=== PATIENT | male | born 1980 | race Caucasian/White ===

== ENCOUNTER 2017-05-26 09:16 | Inpatient (IN) | payer SELFPAY ==
[~2017-05-26] VITALS: Ht 177.8 cm; Wt 114.5 kg
[~2017-05-26 09:16] MED LIST: BACI28.43 TP; CLON1TAB PO; METO25TA4 PO; TRAZ50TA15 PO
[2017-05-26] MEDS ORDERED: IV NORMAL SALINE 1000ML BAG 1,000 ML IV ONE (09:45)
--- NOTE | 2017-05-26 10:45 | PHYS DOC ---
Past Medical History Past Medical History: Anxiety, Hypertension, Schizophrenia, Other Additional Past Medical Histor: PTSD Past Surgical History: No Surgical History Additional Information: Still smokes,"Periodically." Alcohol Use: None Drug Use: None Adult General Chief Complaint Chief Complaint: WEAKNESS/GENERALIZED HPI HPI Patient is a 36 year old male with history of anxiety, hypertension, schizophrenia, who presents today complaining of generalized weakness and cramps throughout his body that began one week ago. Patient believes is having an adverse reactions to his psychiatric medicines which she has been taking for 6 months. He states "I am heavily medicated". Patient is on Quetiapine, Divalproex, Diazepam, Haloperidol, Atomoxetine, Gabapentin, Benztropine, Escitalopram, Atomoxetine. Patient states he believes he needs IV fluids. He states he can't move his legs. Review of Systems Review of Systems Constitutional: Denies fever or chills [] Eyes: Denies change in visual acuity, redness, or eye pain [] HENT: Denies nasal congestion or sore throat [] Respiratory: Denies cough or shortness of breath [] Cardiovascular: No additional information not addressed in HPI [] GI: Denies abdominal pain, nausea, vomiting, bloody stools or diarrhea [] : Denies dysuria or hematuria [] Musculoskeletal: Generalized weakness, muscle cramps. Integument: Denies rash or skin lesions [] Neurologic: Denies headache, focal weakness or sensory changes [] Current Medications Current Medications Current Medications Medications (Trade) Dose Ordered Sig/Cristian Start Time Stop Time Status Last Admin Dose Admin Lorazepam (Ativan) 1 mg PRN Q4HRS PRN 05/26/17 12:30 05/26/17 12:52 1 MG Potassium Chloride 100 ml @ 100 mls/hr Q1H 05/26/17 11:30 05/26/17 13:29 05/26/17 12:33 100 MLS/HR Potassium Chloride (KCl Oral Soln) 40 meq 1X ONCE 05/26/17 11:30 05/26/17 11:31 DC 05/26/17 11:35 40 MEQ Sodium Chloride 1,000 ml @ 1,000 mls/hr 1X ONCE 05/26/17 09:45 05/26/17 10:44 DC 05/26/17 10:39 1,000 MLS/HR Allergies Allergies Allergies Coded Allergies Type Severity Reaction Last Updated Verified No Known Drug Allergies 01/16/15 No Physical Exam Physical Exam Constitutional: Well developed, well nourished, no acute distress, non-toxic appearance. [] HENT: Normocephalic, atraumatic, bilateral external ears normal, oropharynx moist, no oral exudates, nose normal. [] Eyes: PERRLA, EOMI, conjunctiva normal, no discharge. [] Neck: Normal range of motion, no tenderness, supple, no stridor. [] Cardiovascular:Heart rate regular rhythm, no murmur [] Lungs & Thorax: Bilateral breath sounds clear to auscultation [] Abdomen: Bowel sounds normal, soft, no tenderness, no masses, no pulsatile masses. [] Skin: Warm, dry, no erythema, no rash. [] Back: No tenderness, no CVA tenderness. [] Extremities: No tenderness, no cyanosis, no clubbing, ROM intact, no edema. [] Neurologic: Alert and oriented X 3, normal motor function, normal sensory function, no focal deficits noted. Cranial nerves II through XII intact Psychologic: Affect normal, judgement normal, mood normal. [] Current Patient Data Vital Signs Vital Signs Date Time Temp Pulse Resp B/P (MAP) Pulse Ox O2 Delivery O2 Flow Rate FiO2 05/26/17 11:30 92 14 100 05/26/17 09:25 98.9 170/95 (120) Room Air 98.9 Lab Values Laboratory Tests Test 05/26/17 10:30 05/26/17 11:09 White Blood Count 4.1 x10^3/uL (4.0-11.0) Red Blood Count 4.71 x10^6/uL (4.30-5.70) Hemoglobin 14.3 g/dL (13.0-17.5) Hematocrit 41.9 % (39.0-53.0) Mean Corpuscular Volume 89 fL (79-100) Mean Corpuscular Hemoglobin 31 pg (25-35) Mean Corpuscular Hemoglobin Concent 34 g/dL (31-37) Red Cell Distribution Width 14.4 % (11.5-14.5) Platelet Count 161 x10^3/uL (140-400) Neutrophils (%) (Auto) 59 % (31-73) Lymphocytes (%) (Auto) 30 % (24-48) Monocytes (%) (Auto) 7 % (0-9) Eosinophils (%) (Auto) 5 % (0-3) H Basophils (%) (Auto) 1 % (0-3) Neutrophils # (Auto) 2.4 x10^3uL (1.8-7.7) Lymphocytes # (Auto) 1.2 x10^3/uL (1.0-4.8) Monocytes # (Auto) 0.3 x10^3/uL (0.0-1.1) Eosinophils # (Auto) 0.2 x10^3/uL (0.0-0.7) Basophils # (Auto) 0.0 x10^3/uL (0.0-0.2) Sodium Level 143 mmol/L (136-145) Potassium Level 2.1 mmol/L (3.5-5.1) *L Chloride Level 107 mmol/L (98-107) Carbon Dioxide Level 27 mmol/L (21-32) Anion Gap 9 (6-14) Blood Urea Nitrogen 6 mg/dL (8-26) L Creatinine 1.1 mg/dL (0.7-1.3) Estimated GFR (Cockcroft-Gault) 75.7 BUN/Creatinine Ratio 5 (6-20) L Glucose Level 80 mg/dL (70-99) Calcium Level 8.7 mg/dL (8.5-10.1) Magnesium Level 1.8 mg/dL (1.8-2.4) Total Bilirubin 0.1 mg/dL (0.2-1.0) L Aspartate Amino Transferase (AST) 32 U/L (15-37) Alanine Aminotransferase (ALT) 24 U/L (16-63) Alkaline Phosphatase 60 U/L (46-116) Myoglobin 285 ng/mL (16-96) H C-Reactive Protein, Quantitative 3.7 mg/L (0-3.3) H Total Protein 6.8 g/dL (6.4-8.2) Albumin 3.5 g/dL (3.4-5.0) Albumin/Globulin Ratio 1.1 (1.0-1.7) Lipase 160 U/L (73-393) Ethyl Alcohol Level < 10 mg/dL (0-10) Urine Collection Type Unknown Urine Color Yellow Urine Clarity Clear Urine pH 6.5 Urine Specific [place] <=1.005 Urine Protein Negative mg/dL (NEG-TRACE) Urine Glucose (UA) Negative mg/dL (NEG) Urine Ketones (Stick) Negative mg/dL (NEG) Urine Blood Negative (NEG) Urine Nitrite Negative (NEG) Urine Bilirubin Negative (NEG) Urine Urobilinogen Dipstick 0.2 mg/dL (0.2 mg/dL) Urine Leukocyte Esterase Negative (NEG) Urine RBC 0 /HPF (0-2) Urine WBC Occ /HPF (0-4) Urine Bacteria 0 /HPF (0-FEW) Urine Opiates Screen Neg (NEG) Urine Methadone Screen Neg (NEG) Urine Barbiturates Neg (NEG) Urine Phencyclidine Screen Neg (NEG) Urine Amphetamine/Methamphetamine Neg (NEG) Urine Benzodiazepines Screen Pos (NEG) Urine Cocaine Screen Neg (NEG) Urine Cannabinoids Screen Neg (NEG) Urine Ethyl Alcohol Neg (NEG) Laboratory Tests 05/26/17 10:30 Laboratory Tests 05/26/17 10:30 EKG EKG 11:[address] Ospina sinus tachycardia heart rate 102 no STEMI[] Radiology/Procedures Radiology/Procedures [] Course & Med Decision Making Course & Med Decision Making Pertinent Labs and Imaging studies reviewed. (See chart for details) This is a 36-year-old male patient presenting to the ED today with generalized weakness, and muscle cramps throughout his body that began a week ago. Patient believes is having adverse reaction to one of his psychiatric medicines. He takes Quetiapine, Divalproex, Diazepam, Haloperidol, Atomoxetine, Gabapentin, Benztropine, Escitalopram, Atomoxetine. CBC no acute findings, CMP with potassium of 2.1, myoglobin 285, CRP 3.7. Patient was given oral potassium as well as IV potassium was started. EKG was done. Vitals on arrival to the ED temperature 98.9, heart rate 116, respirations 19 on room air, blood pressure 170/95, O2 sats 97% on room air. Spoke with Dr. Laureano who accepted patient for admission. Dragon Disclaimer Dragon Disclaimer This electronic medical record was generated, in whole or in part, using a voice recognition dictation system. Departure Departure Impression: Primary Impression: Hypokalemia Additional Impression: Hypertension Disposition: 09 ADMITTED INPATIENT Condition: STABLE Referrals: NO PCP (PCP) Problem Qualifiers Additional Impression: Hypertension Hypertension type: unspecified Qualified Codes: I10 - Essential (primary) hypertension RIC KAISER APRN May 26, 2017 10:45
[2017-05-26 10:48] LABS: BASO % 1 % (0-3); EOS % 5 % (0-3); HEMATOCRIT 41.9 % (39.0-53.0); HEMOGLOBIN 14.3 g/dL (13.0-17.5); LYMPH # 1.2 x10^3/uL (1.0-4.8); LYMPH % 30 % (24-48); MEAN CORPUSCULAR HEMOGLOBIN 31 pg (25-35); MEAN CORPUSCULAR HGB CONC 34 g/dL (31-37); MEAN CORPUSCULAR VOLUME 89 fL (79-100); MONO % 7 % (0-9); NEUT % 59 % (31-73); PLATELET COUNT 161 x10^3/uL (140-400); RED BLOOD COUNT 4.71 x10^6/uL (4.30-5.70); RED CELL DISTRIBUTION WIDTH 14.4 % (11.5-14.5); WHITE BLOOD COUNT 4.1 x10^3/uL (4.0-11.0)
[2017-05-26 11:07] LABS: ALBUMIN 3.5 g/dL (3.4-5.0); ALBUMIN/GLOBULIN RATIO 1.1 (1.0-1.7); C-REACTIVE PROTEIN 3.7 mg/L (0-3.3); CALCIUM 8.7 mg/dL (8.5-10.1); CREATININE 1.1 mg/dL (0.7-1.3); GFR 75.7; MAGNESIUM 1.8 mg/dL (1.8-2.4); TOTAL BILIRUBIN 0.1 mg/dL (0.2-1.0); TOTAL PROTEIN 6.8 g/dL (6.4-8.2)
[2017-05-26 11:09] LABS: POTASSIUM 2.1 mmol/L (3.5-5.1)
[2017-05-26 11:24] LABS: BILIRUBIN,URINE NEGATIVE (NEG); GLUCOSE,URINE NEGATIVE (NEG); NITRITE,URINE NEGATIVE (NEG); PH,URINE 6.5; PROTEIN,URINE NEGATIVE (NEG-TRACE); UROBILINOGEN,URINE 0.2 mg/dL (0.2 mg/dL)
[2017-05-26] MEDS ORDERED: POTASSIUM CHLORIDE 20 MEQ/15 ML ORAL LIQUID. PO ONE (11:30)
[2017-05-26 11:32] LABS: BACTERIA,URINE 0 /HPF (0-FEW); RBC,URINE 0 /HPF (0-2); WBC,URINE OCC /HPF (0-4)
[2017-05-26] MEDS: POTASSIUM CHLORIDE 10MEQ 100 ML IV SCH ×6 (11:35→23:04)
[2017-05-26 12:26] LABS: BARBITURATES NEG (NEG); BENZODIAZEPINES POS (NEG); CANNABINOIDS NEG (NEG); COCAINE NEG (NEG); METHADONE NEG (NEG); OPIATES NEG (NEG); PHENCYCLIDINE NEG (NEG)
[2017-05-26] MEDS ORDERED: ESCITALOPRAM OX20 MG PO (12:59)
[2017-05-26] MEDS ORDERED: VALIUM10 MG PO (12:59)
[2017-05-26] MEDS ORDERED: ATOM40CA PO (13:01)
[2017-05-26] MEDS ORDERED: GABA-586 PO (13:02)
[2017-05-26] MEDS ORDERED: QUET300T5 PO (13:02)
[2017-05-26] MEDS ORDERED: HALO10TA PO (13:03)
[2017-05-26] MEDS ORDERED: DIVA250T PO (13:07)
[2017-05-26] MEDS ORDERED: OXYC-328 PO (13:10)
[2017-05-26] MEDS ORDERED: TRAZ50TA15 PO (13:11)
[2017-05-26] MEDS ORDERED: IBUP-1027 PO (13:12)
[2017-05-26] MEDS ORDERED: BENZ1TAB5 PO (13:17)
[2017-05-26] MEDS ORDERED: DIVA500T4 PO (13:17)
[2017-05-26] MEDS ORDERED: ACETAMINOPHEN 325 MG TABLET. PO PRN (13:30)
[2017-05-26] MEDS ORDERED: ONDANSETRON PF 4 MG/2 ML VIAL. IV PRN (13:30)
--- NOTE | 2017-05-26 14:54 | EKG ---
[facility] [address] [place] [address] Test Date: 2017-05-26 Test Time: 11:52:09 Pat Name: HENRRY CHAPIN Department: Room: ED HOLD 18 Gender: M [employer]st: : [id number] Requested By: RIC KAISER Order Number: [id number] Reading MD: Pricila Wolff Measurements Intervals [place] Rate: 102 P: 36 [place]: 158 QRS: 26 QRSD: 86 T: 11 QT: 300 QTc: 395 Interpretive Statements SINUS TACHYCARDIA OTHERWISE NORMAL EKG Electronically Signed On 05-26-2017 20:10:49 CDT by Pricila Wolff
[2017-05-26 16:00] VITALS: BP 147/93
[2017-05-26 19:05] LABS: MAGNESIUM 1.8 mg/dL (1.8-2.4)
[2017-05-26 19:19] LABS: POTASSIUM 1.9 mmol/L (3.5-5.1)
[2017-05-26] MEDS: POTASSIUM CHLORIDE 20 MEQ TABLET.ER. PO SCH ×2 (19:37→23:32)
[2017-05-26 19:50] VITALS: BP 157/92
[2017-05-26] MEDS ORDERED: POTASSIUM CHLORIDE 10MEQ 100 ML IV SCH (20:00)
[2017-05-26] MEDS ORDERED: HALOPERIDOL 5 MG TABLET. PO SCH (20:15)
--- NOTE | 2017-05-26 20:35 | HP ---
ADMIT DATE: 05/26/2017 CHIEF COMPLAINT: Severe hypokalemia. HISTORY OF PRESENT ILLNESS: The patient is a 36-year-old gentleman with schizoaffective disorder who presented to the Emergency Room with a 1-week history of worsening cramps and weakness all over. He denies any other symptoms, although on further questioning admits that last week, he had a watery diarrhea multiple times. Symptoms now have resolved. He denies any other symptoms, chest pain or shortness of breath. In the Emergency Room, he was found with a potassium of 2.1 and immediately admitted for repletion. Of note, his EKG was actually within normal limits. PAST MEDICAL HISTORY: Schizoaffective disorder. FAMILY HISTORY: Positive for cancer, mother apparently has both ovarian as well as breast cancer and thyroid cancer. SOCIAL HISTORY: Lives with his mother, smokes "occasionally." Denies any alcohol or drug use. ALLERGIES: No known drug allergies. MEDICATIONS: MAR reconciled with home medications. REVIEW OF SYSTEMS: Positive as per HPI. Denies any other symptoms in rest of organ system review. PHYSICAL EXAMINATION: VITAL SIGNS: Currently show a blood pressure of 147/93, heart rate of 107, respiratory rate at 22. He is afebrile. GENERAL: This is a morbidly obese 36-year-old gentleman, alert and oriented, in no acute distress. HEENT: Shows no scleral icterus. NECK: Supple. LUNGS: Clear. HEART: Slightly tachycardic. ABDOMEN: Obese, positive bowel sounds. Organs could not be palpated. EXTREMITIES: Show no edema. He has a significant muscle weakness in his extremities x 4. LABORATORY DATA: CBC with a WBC of 4.1, hemoglobin 14.3, platelets of 161. Chemistries with a BUN and creatinine of 6 and 1.1. Electrolytes with a potassium of 2.1, mag at 1.8. Other electrolytes within normal limits. Myoglobin at 285. C-reactive protein 3.7. Tox screen positive for benzodiazepines as his prescriptions. Urine is negative. ASSESSMENT AND PLAN: The patient is a 36-year-old gentleman who presented with muscle weakness and spasms and was found with severe hypokalemia, isolated. He will be repleted CASSIE both IV and p.o., we will monitor his labs closely. Urine electrolytes will be obtained as well. In trying to determine the etiology, he was questioned about his fluid intake. He apparently drinks copious amounts of soda and "washes them down" with water. However, I would expect all electrolytes to be depressed rather than isolated potassium should that be the cause. Looking at his medication, Seroquel indeed can cause hypokalemia as well as hypomagnesemia. However, he has been on this medication for at least 6 months and is just now developing symptoms. We will keep him on a medication for now. Would like to get psych input, unfortunately not available here. We will reevaluate electrolytes in the morning. Consider holding a single dose of Seroquel at night. DIANE CORONA MD DR: SHELLI/nts JOB#: [id number] / [id number] SAURAV
[2017-05-26] MEDS: BENZTROPINE MESYLATE 1 MG TABLET. PO SCH (20:49)
[2017-05-26] MEDS: clonazePAM 1 MG TABLET PO SCH (20:50)
[2017-05-26] MEDS: diazePAM 5 MG TABLET PO SCH (20:50)
[2017-05-26] MEDS: DIVALPROEX EXTENDED RELEASE 500 MG TAB.ER.24H. PO SCH (20:51)
[2017-05-26] MEDS: GABAPENTIN 300 MG CAPSULE. PO SCH (20:51)
[2017-05-26] MEDS: HALOPERIDOL 5 MG TABLET. PO SCH (20:51)
[2017-05-26] MEDS ORDERED: traZODone 50 MG TABLET. PO SCH (21:00)
[2017-05-26] MEDS ORDERED: QUEtiapine 300 MG TAB.ER.24H. PO SCH (21:00)
[2017-05-26] MEDS ORDERED: MORPHINE SULFATE 2 MG/ML DISP.SYRIN. IV PRN (22:45)
[2017-05-26] MEDS ORDERED: traMADol 50 MG TABLET PO PRN ×2 (22:45)
[2017-05-26 23:45] VITALS: BP 126/75
[2017-05-27] MEDS ORDERED: MAGNESIUM SULFATE 2GM 50 ML IV ONE (02:00)
[2017-05-27 03:35] VITALS: BP 125/75
[2017-05-27] MEDS: POTASSIUM CHLORIDE 20 MEQ TABLET.ER. PO SCH ×2 (03:47→08:02)
[2017-05-27 05:30] LABS: CREATININE 0.9 mg/dL (0.7-1.3); GFR 95.5; MAGNESIUM 2.1 mg/dL (1.8-2.4); POTASSIUM 3.7 mmol/L (3.5-5.1)
[2017-05-27 07:00] VITALS: BP 117/61
[2017-05-27 07:42] LABS: BASO % 0 % (0-3); EOS % 3 % (0-3); HEMATOCRIT 42.1 % (39.0-53.0); HEMOGLOBIN 14.6 g/dL (13.0-17.5); LYMPH # 1.5 x10^3/uL (1.0-4.8); LYMPH % 24 % (24-48); MEAN CORPUSCULAR HEMOGLOBIN 31 pg (25-35); MEAN CORPUSCULAR HGB CONC 35 g/dL (31-37); MEAN CORPUSCULAR VOLUME 89 fL (79-100); MONO % 7 % (0-9); NEUT % 65 % (31-73); PLATELET COUNT 184 x10^3/uL (140-400); RED BLOOD COUNT 4.73 x10^6/uL (4.30-5.70); RED CELL DISTRIBUTION WIDTH 14.7 % (11.5-14.5); WHITE BLOOD COUNT 6.4 x10^3/uL (4.0-11.0)
[2017-05-27] MEDS ORDERED: NON FORMULARY ITEM (Atomoxetine Hcl (Strattera) 1 CAP) PO SCH (08:00)
[2017-05-27] MEDS: BENZTROPINE MESYLATE 1 MG TABLET. PO SCH (08:25)
[2017-05-27] MEDS: diazePAM 5 MG TABLET PO SCH ×2 (08:26→13:00)
[2017-05-27] MEDS: HALOPERIDOL 5 MG TABLET. PO SCH (08:26)
[2017-05-27] MEDS: clonazePAM 1 MG TABLET PO SCH ×2 (08:26→14:03)
[2017-05-27] MEDS: DIVALPROEX EXTENDED RELEASE 500 MG TAB.ER.24H. PO SCH ×2 (09:00→14:00)
[2017-05-27] MEDS ORDERED: CITALOPRAM 20 MG TABLET. PO SCH (09:00)
[2017-05-27] MEDS: GABAPENTIN 300 MG CAPSULE. PO SCH ×2 (09:00→13:09)
[2017-05-27 11:00] VITALS: BP 165/79
[2017-05-27] MEDS ORDERED: DIAZEPAM10 MG PO (13:52)
[2017-05-27] MEDS ORDERED: CITA10TA4 PO (13:53)
--- NOTE | 2017-05-27 14:40 | PDOC3 ---
Discharge Summary [facility] Date of Admission: May 26, 2017 Discharge Date: May 27, 2017 Admitting Diagnosis generalized weakness leg cramps hypokalemia hypomagnesemia schizophrenia affective disorder plan: Problems: Final Diagnosis Brief Hospital Course Mr. Lucio is a 36 old M with schizophrenia affective disorder on multiple psych meds, some of them held by himself, came to ER for weakness and leg cramps. K was found 2.1, which is repleted overnight. pt said has some diarrhea 2 weeks, but not recently. admitted low po intake. pt ran out of unit to smoke, said he didnot know he could not do it. he feels ok now. dc home. asked him to fu with pcp, may need renal if cont hypokalemia. dc time 35min GENERAL: This is a morbidly obese 36-year-old gentleman, alert and oriented, in no acute distress. HEENT: Shows no scleral icterus. NECK: Supple. LUNGS: Clear. HEART: Slightly tachycardic. ABDOMEN: Obese, positive bowel sounds. Organs could not be palpated. EXTREMITIES: Show no edema. He has a significant muscle weakness in his extremities x 4. Patient History: Problems: Disposition home CONDITION AT DISCHARGE: Improved Diet regular Scheduled Atomoxetine Hcl (Strattera), 1 CAP PO DAILYWBKFT, (Reported) Benztropine Mesylate (Benztropine Mesylate), 1 TAB PO BID, (Reported) Citalopram Hydrobromide (Citalopram Hbr), 1 TAB PO DAILY, (Reported) Diazepam (Diazepam), 10 MG PO BID, (Reported) Divalproex Sodium (Depakote Er), 1 TAB PO TID, (Reported) Gabapentin (Gabapentin), 300 MG PO TID, (Reported) Haloperidol (Haloperidol), 1 TAB PO BID, (Reported) Oxycodone/Apap 10-325 (Percocet 10-325 Mg Tablet), 1 TAB PO Q4-6HRS, (Reported) Quetiapine Fumarate (Seroquel), 1 TAB PO QHS, (Reported) Trazodone Hcl (Trazodone Hcl), 1.5 TAB PO QHS, (Reported) Discontinued Medications Bacitracin (Bacitracin), 30 GM TP PRN BID PRN for RASH Discontinued Reason: Not taking Divalproex Sodium (Depakote Er), 1 TAB PO TID, (Reported) Discontinued Reason: Prescription changed Ibuprofen (Ibuprofen), 5 TAB PO PRN PRN for INFLAMMATION, (Reported) Metoprolol Tartrate (Metoprolol Tartrate), 1 TAB PO BID Discontinued Reason: Not taking Trazodone Hcl (Trazodone Hcl), 1 TAB PO QHS Discontinued Reason: Not taking Follow Up pcp in2 weeks LONG RANDHAWA MD May 27, 2017 14:39
[2017-05-27 18:17] LABS: SODIUM, URINE <60 mmol/L (Not Estab.)
== END 2017-05-27 14:10 | disposition home or self-care (01) | DRG 641 ==
LOC: ER 09:16 → ED HOLD 12:30 → 2 SOUTH 15:39
PROVIDERS: ADMIT Internal Medicine Hematology & Oncology; ATTEND Internal Medicine Hematology & Oncology
DX: E87.6 Hypokalemia (principal); E83.42 Hypomagnesemia; I10 Essential (primary) hypertension; E66.01 Morbid (severe) obesity due to excess calories; F25.9 Schizoaffective disorder, unspecified; Z68.36 Body mass index [BMI] 36.0-36.9, adult; F39 Unspecified mood [affective] disorder; F43.10 Post-traumatic stress disorder, unspecified; Z80.3 Family history of malignant neoplasm of breast; Z80.8 Family history of malignant neoplasm of other organs or systems; Z87.891 Personal history of nicotine dependence; F41.9 Anxiety disorder, unspecified
CPT/HCPCS: 36415; 80048; 80053; 80307; 81001; 82436; 83690; 83735; 83874; 84132; 84133; 84300; 85025; 86140; 93005; 96361; 96365; 96366; 96375; G0480; J2060; J3480; J7030; J7060; 99285-25; G0479

== ENCOUNTER 2017-11-05 17:42 | Emergency (ER) | payer SELFPAY ==
[2017-11-05 18:23] LABS: ADD MAN DIFF? NO
[2017-11-05 18:25] LABS: BASO # 0.1 x10^3/uL (0.0-0.2); BASO % 1 % (0-3); EOS # 0.1 x10^3/uL (0.0-0.7); EOS % 1 % (0-3); HEMATOCRIT 41.1 % (39.0-53.0); HEMOGLOBIN 14.2 g/dL (13.0-17.5); LYMPH % 10 % (24-48); MEAN CORPUSCULAR HEMOGLOBIN 32 pg (25-35); MEAN CORPUSCULAR HGB CONC 35 g/dL (31-37); MEAN CORPUSCULAR VOLUME 94 fL (79-100); MONO # 1.3 x10^3/uL (0.0-1.1); MONO % 12 % (0-9); NEUT # 8.5 x10^3uL (1.8-7.7); NEUT % 78 % (31-73); PLATELET COUNT 136 x10^3/uL (140-400); RED BLOOD COUNT 4.38 x10^6/uL (4.30-5.70); RED CELL DISTRIBUTION WIDTH 14.7 % (11.5-14.5); WHITE BLOOD COUNT 10.9 x10^3/uL (4.0-11.0)
[2017-11-05] MEDS: ONDANSETRON PF 4 MG/2 ML VIAL. IV (18:26)
[2017-11-05] MEDS: DEXAMETHASONE SOD PHOS 20 MG/5 ML VIAL. IV (18:27)
[2017-11-05] MEDS: diphenhydrAMINE 50 MG/ML VIAL IV (18:27)
[2017-11-05] MEDS: FAMOTIDINE 20 MG/2 ML VIAL IVP (18:27)
[2017-11-05] MEDS: IV NORMAL SALINE 1000ML BAG 1,000 ML IV (18:28)
[2017-11-05 18:37] LABS: ANION GAP 10 (6-14); BLOOD UREA NITROGEN 15 mg/dL (8-26); CALCIUM 8.7 mg/dL (8.5-10.1); CARBON DIOXIDE 29 mmol/L (21-32); CHLORIDE 104 mmol/L (98-107); CREATININE 1.3 mg/dL (0.7-1.3); GFR 62.1; GLUCOSE 105 mg/dL (70-99); MAGNESIUM 1.8 mg/dL (1.8-2.4); POTASSIUM 4.1 mmol/L (3.5-5.1); SODIUM 143 mmol/L (136-145)
== END 2017-11-05 20:10 | disposition home or self-care (01) ==
LOC: ER 17:42
DX: T78.40XA Allergy, unspecified, initial encounter (principal); F41.9 Anxiety disorder, unspecified; I10 Essential (primary) hypertension; F20.9 Schizophrenia, unspecified; F43.10 Post-traumatic stress disorder, unspecified; Z79.899 Other long term (current) drug therapy; X58.XXXA Exposure to other specified factors, initial encounter
CPT/HCPCS: 36415; 80048; 83735; 85025; 96361; 96374; 96375; 99284-25; J1100; J1200; J2060; J2405; J7030; S0028

== ENCOUNTER 2018-07-04 16:25 | Emergency (ER) | payer SELFPAY ==
[~2018-07-04] VITALS: Ht 177.8 cm; Wt 117.9 kg
[~2018-07-04 16:25] MED LIST changes: +ATEN50TA PO; +ATOM40CA PO; +BENZ1TAB5 PO; +CARI6CAP PO; +CITA10TA4 PO; +CLON1TAB11 PO; +DIAZEPAM10 MG PO; +DIVA250T PO; +DIVA500T4 PO; +ESCITALOPRAM OX10 MG PO; +ESCITALOPRAM OX20 MG PO; +GABA-586 PO; +HALO10TA PO; +IBUP-1027 PO; +METH4TAB2 PO; +OXYC-328 PO; +QUET300T5 PO; +TRAZ-85 PO; -TRAZ50TA15 PO; +VALIUM10 MG PO
[2018-07-04 16:30] VITALS: BP 158/108
[2018-07-04 17:39] LABS: BARBITURATES NEG (NEG); BENZODIAZEPINES NEG (NEG); CANNABINOIDS NEG (NEG); COCAINE NEG (NEG); METHADONE NEG (NEG); OPIATES NEG (NEG); PHENCYCLIDINE NEG (NEG)
[2018-07-04 17:40] LABS: AMPHETAMINE/METHAMPHETAMINE POS (NEG)
--- NOTE | 2018-07-04 17:46 | PHYS DOC ---
Past Medical History Past Medical History: Anxiety, Hypertension, Seizure, Schizophrenia, Other Additional Past Medical Histor: PTSD,SCHIZO-EFFECTIVE,LOW TESTERONE,MENTALLY CHALLENGED,DELUSIONAL THINKING Past Surgical History: No Surgical History Alcohol Use: None Drug Use: None Adult General Chief Complaint Chief Complaint: CHEMICAL EXPOSURE [facility] HPI Patient is a 37 year old male with a history of anxiety, hypertension, schizophrenia, who presents to the ED today complaining of radiation exposure. Patient has a long extensive story. The story goes like this. 3 weeks ago he was in [place] as. He states this strange person who works for [employer] went to his house in [place] when he was in [place]. He states this pulsatile mass for the DELIA his name is Neil. He states crease sprinkled radiation material all over his house in [place] including [place] 265, Thallium 235, and Veridium 260, he also injected the same material in him. Inquired from patient how did this person do both of these events in different cities at the same time. He states "never mind I was not in [place]". Inquired from patient if he reported this mother to police. He states he did not report to police he reported to [facility] version of [facility]. Inquired from patient what bit they do. He states they did nothing because this people private employees and they cannot be revealed in public. Patient continues to state we need to draw his blood to check for poisoning. At this point informed patient I am concerned about his psychological state as as well as concerned about the information of someone having radiation material. Informed patient I'm going to call the police department report as well as, poison control. Patient stood up and stated that he is leaving, he states he does not want the police involved in any way. Asked him why he does not want the police involved. He states he does not want this reported to anyone. He stood up and walked away. Review of Systems Review of Systems Constitutional: Denies fever or chills [] Eyes: Denies change in visual acuity, redness, or eye pain [] HENT: Denies nasal congestion or sore throat [] Respiratory: Denies cough or shortness of breath [] Cardiovascular: No additional information not addressed in HPI [] GI: Denies abdominal pain, nausea, vomiting, bloody stools or diarrhea [] : Denies dysuria or hematuria [] Musculoskeletal: Denies back pain or joint pain [] Integument: Denies rash or skin lesions [] Neurologic: Denies headache, focal weakness or sensory changes [] Psych: concern for radiation exposure All other systems were reviewed and found to be within normal limits, except as documented in this note. Allergies Allergies Allergies Coded Allergies Type Severity Reaction Last Updated Verified No Known Drug Allergies 01/16/15 No Physical Exam Physical Exam Constitutional: Well developed, well nourished, no acute distress, non-toxic appearance. [] HENT: Normocephalic, atraumatic, bilateral external ears normal, oropharynx moist, no oral exudates, nose normal. [] Eyes: PERRLA, EOMI, conjunctiva normal, no discharge. [] Neck: Normal range of motion, no tenderness, supple, no stridor. [] Cardiovascular:Heart rate regular rhythm, no murmur [] Lungs & Thorax: Bilateral breath sounds clear to auscultation [] Abdomen: Bowel sounds normal, soft, no tenderness, no masses, no pulsatile masses. [] Skin: Warm, dry, no erythema, no rash. [] Back: No tenderness, no CVA tenderness. [] Extremities: No tenderness, no cyanosis, no clubbing, ROM intact, no edema. [] Neurologic: Alert and oriented X 3, normal motor function, normal sensory function, no focal deficits noted. [] Psychologic: Appears depressed. EKG EKG [] Radiology/Procedures Radiology/Procedures [] Course & Med Decision Making Course & Med Decision Making Pertinent Labs and Imaging studies reviewed. (See chart for details) [] Dragon Disclaimer Dragon Disclaimer This electronic medical record was generated, in whole or in part, using a voice recognition dictation system. Departure Departure Impression: Primary Impression: Depression Additional Impression: Psychosis Disposition: 07 AGAINST MEDICAL ADVICE Condition: STABLE Referrals: NO PCP (PCP) Problem Qualifiers Primary Impression: Depression Depression Type: unspecified Qualified Codes: F32.9 - Major depressive disorder, single episode, unspecified Additional Impression: Psychosis Psychosis type: unspecified psychosis type Qualified Codes: F29 - Unspecified psychosis not due to a substance or known physiological condition RIC KAISER APRN Jul 04, 2018 17:46
== END 2018-07-04 17:14 | disposition left against medical advice (07) ==
LOC: ER 16:25
DX: F32.3 Major depressive disorder, single episode, severe with psychotic features (principal); Z77.123 Contact with and (suspected) exposure to radon and other naturally occurring radiation; F41.9 Anxiety disorder, unspecified; I10 Essential (primary) hypertension
CPT/HCPCS: 80307; 99283

== ENCOUNTER 2018-07-04 22:01 | Emergency (ER) | payer SELFPAY ==
[~2018-07-04] VITALS: Ht 177.8 cm; Wt 120.2 kg
[2018-07-04 22:10] VITALS: BP 157/93
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
[2018-07-04 22:51] LABS: BASO # 0.1 x10^3/uL (0.0-0.2); BASO % 2 % (0-3); EOS # 0.4 x10^3/uL (0.0-0.7); EOS % 5 % (0-3); HEMATOCRIT 43.8 % (39.0-53.0); HEMOGLOBIN 15.5 g/dL (13.0-17.5); LYMPH # 2.2 x10^3/uL (1.0-4.8); LYMPH % 30 % (24-48); MEAN CORPUSCULAR HEMOGLOBIN 31 pg (25-35); MEAN CORPUSCULAR HGB CONC 35 g/dL (31-37); MEAN CORPUSCULAR VOLUME 87 fL (79-100); MONO # 0.4 x10^3/uL (0.0-1.1); MONO % 6 % (0-9); NEUT # 4.1 x10^3uL (1.8-7.7); NEUT % 57 % (31-73); PLATELET COUNT 205 x10^3/uL (140-400); RED BLOOD COUNT 5.04 x10^6/uL (4.30-5.70); RED CELL DISTRIBUTION WIDTH 13.3 % (11.5-14.5); WHITE BLOOD COUNT 7.3 x10^3/uL (4.0-11.0)
[2018-07-04 22:54] LABS: BILIRUBIN,URINE NEGATIVE (NEG); CLARITY,URINE CLEAR; NITRITE,URINE NEGATIVE (NEG); PROTEIN,URINE NEGATIVE (NEG-TRACE); UROBILINOGEN,URINE 0.2 mg/dL (0.2 mg/dL)
[2018-07-04 23:00] LABS: CALCIUM 8.9 mg/dL (8.5-10.1); CREATININE 1.2 mg/dL (0.7-1.3); GFR 68.1; POTASSIUM 3.4 mmol/L (3.5-5.1)
[2018-07-04 23:01] LABS: BARBITURATES NEG (NEG); BENZODIAZEPINES NEG (NEG); CANNABINOIDS NEG (NEG); COCAINE NEG (NEG); METHADONE NEG (NEG); OPIATES NEG (NEG); PHENCYCLIDINE NEG (NEG)
[2018-07-04 23:02] LABS: AMPHETAMINE/METHAMPHETAMINE POS (NEG)
[2018-07-04 23:03] LABS: COLOR,URINE STRAW
[2018-07-04 23:05] LABS: BACTERIA,URINE 0 /HPF (0-FEW); RBC,URINE 0 /HPF (0-2); WBC,URINE 0 /HPF (0-4)
[2018-07-04 23:05] LABS: ACETAMIN < 2 mcg/ml (10-30); ETHANOL < 10 mg/dL (0-10)
[2018-07-04 23:06] LABS: ALBUMIN 3.8 g/dL (3.4-5.0); TOTAL BILIRUBIN 0.2 mg/dL (0.2-1.0); TOTAL PROTEIN 7.5 g/dL (6.4-8.2)
== END 2018-07-04 23:34 | disposition home or self-care (01) ==
LOC: ER 22:01
DX: F20.9 Schizophrenia, unspecified (principal); F41.9 Anxiety disorder, unspecified; F32.9 Major depressive disorder, single episode, unspecified; I10 Essential (primary) hypertension
CPT/HCPCS: 36415; 80053; 80307; 80329; 81001; 85025; 99284; G0480; G6039

== ENCOUNTER 2018-07-17 11:10 | Emergency (ER) | payer SELFPAY ==
[~2018-07-17] VITALS: Ht 176.5 cm; Wt 115.0 kg
[~2018-07-17 11:10] MED LIST changes: -GABA-586 PO; +GABA300C18 PO; -OXYC-328 PO; +OXYC1TAB22 PO
[2018-07-17 11:20] VITALS: BP 160/78
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
== END 2018-07-17 11:48 | disposition home or self-care (01) ==
LOC: ER 11:10
DX: F22 Delusional disorders (principal); R45.1 Restlessness and agitation; F17.200 Nicotine dependence, unspecified, uncomplicated; F41.9 Anxiety disorder, unspecified; I10 Essential (primary) hypertension; F20.9 Schizophrenia, unspecified
CPT/HCPCS: 99281; 99284

== ENCOUNTER 2019-03-26 17:19 | Emergency (ER) | payer SELFPAY ==
[~2019-03-26] VITALS: Ht 177.8 cm; Wt 120.2 kg
[~2019-03-26 17:19] MED LIST changes: +LOXA10CA PO; +TRAZ-118 PO; -TRAZ-85 PO
[2019-03-26 17:25] VITALS: BP 166/94
--- NOTE | 2019-03-26 17:41 | PHYS DOC ---
Past Medical History Past Medical History: Anxiety, Hypertension, Seizure, Schizophrenia, Other Additional Past Medical Histor: PTSD,SCHIZO-EFFECTIVE,LOW TESTERONE,MENTALLY CHALLENGED,DELUSIONAL THINKING (IAN NESBITT APRN) Past Surgical History: No Surgical History (IAN NESBITT APRN) Alcohol Use: None Drug Use: None (IAN NESBITT APRN) Adult General Chief Complaint Chief Complaint: OTHER COMPLAINTS HPI HPI Patient is a 38 year old male that presents with diffuse body wide cramping has been ongoing for 36 hours. The patient states this happened 2 times in the past and both times magnesium and potassium were low. The patient states that he does not do any drugs, only takes medicine for anxiety and depression. Has not been trying to work out harder than usual. Rates his pain as 9 out of 10 and sharp. The patient not tried any pain medicine at home. (IAN NESBITT APRN) Review of Systems Review of Systems Constitutional: Denies fever or chills. Reports body wide cramping. Eyes: Denies change in visual acuity, redness, or eye pain [] HENT: Denies nasal congestion or sore throat [] Respiratory: Denies cough or shortness of breath [] Cardiovascular: No additional information not addressed in HPI [] GI: Denies abdominal pain, nausea, vomiting, bloody stools or diarrhea [] : Denies dysuria or hematuria [] Musculoskeletal: Denies back pain or joint pain [] Integument: Denies rash or skin lesions [] Neurologic: Denies headache, focal weakness or sensory changes [] Endocrine: Denies polyuria or polydipsia [] Complete systems were reviewed and found to be within normal limits, except as documented in this note. (IAN NESBITT APRN) Current Medications Current Medications Current Medications Medications (Trade) Dose Ordered Sig/Cristian Start Time Stop Time Status Last Admin Dose Admin Ketorolac Tromethamine (Toradol 15mg Vial) 15 mg 1X ONCE 03/26/19 21:15 03/26/19 21:16 DC 03/26/19 21:06 15 MG Ketorolac Tromethamine (Toradol 30mg Vial) 30 mg STK-MED ONCE 03/26/19 20:51 03/26/19 20:51 DC Magnesium Sulfate/ Dextrose 100 ml @ 100 mls/hr 1X ONCE 8/10/19 19:30 03/26/19 20:29 DC 03/26/19 19:41 100 MLS/HR Orphenadrine Citrate (Norflex) 60 mg 1X ONCE 03/26/19 18:00 03/26/19 18:01 DC 03/26/19 18:03 60 MG Potassium Chloride (Klor-Con) 80 meq 1X ONCE 03/26/19 19:30 03/26/19 19:31 DC 03/26/19 19:41 80 MEQ Sodium Chloride 1,000 ml @ 1,000 mls/hr 1X ONCE 03/26/19 19:00 03/26/19 19:59 DC 03/26/19 19:41 1,000 MLS/HR (IAN SMYTH DO) Allergies Allergies Allergies Coded Allergies Type Severity Reaction Last Updated Verified No Known Drug Allergies 01/16/15 No (IAN SMYTH DO) Physical Exam Physical Exam Constitutional: Well developed, well nourished, no acute distress, non-toxic appearance. [] HENT: Normocephalic, atraumatic, bilateral external ears normal, oropharynx moist, no oral exudates, nose normal. [] Eyes: PERRLA, EOMI, conjunctiva normal, no discharge. [] Neck: Normal range of motion, no tenderness, supple, no stridor. [] Cardiovascular:Heart rate regular rhythm, no murmur [] Lungs & Thorax: Bilateral breath sounds clear to auscultation [] Abdomen: Bowel sounds normal, soft, no tenderness, no masses, no pulsatile mass es. [] Skin: Warm, dry, no erythema, no rash. [] Back: No tenderness, no CVA tenderness. [] Extremities: No tenderness, no cyanosis, no clubbing, ROM intact, no edema. [] Neurologic: Alert and oriented X 3, normal motor function, normal sensory function, no focal deficits noted. [] Psychologic: Affect normal, judgement normal, mood normal. [] (IAN NESBITT APRN) Current Patient Data Vital Signs Vital Signs Date Time Temp Pulse Resp B/P (MAP) Pulse Ox O2 Delivery O2 Flow Rate FiO2 03/26/19 17:25 98.2 108 18 166/94 (118) 97 Room Air 98.2 (IAN SMYTH DO) Lab Values Laboratory Tests Test 03/26/19 17:45 03/26/19 18:30 White Blood Count 8.0 x10^3/uL (4.0-11.0) Red Blood Count 5.38 x10^6/uL (4.30-5.70) Hemoglobin 16.2 g/dL (13.0-17.5) Hematocrit 46.2 % (39.0-53.0) Mean Corpuscular Volume 86 fL (79-100) Mean Corpuscular Hemoglobin 30 pg (25-35) Mean Corpuscular Hemoglobin Concent 35 g/dL (31-37) Red Cell Distribution Width 13.8 % (11.5-14.5) Platelet Count 202 x10^3/uL (140-400) Neutrophils (%) (Auto) 57 % (31-73) Lymphocytes (%) (Auto) 28 % (24-48) Monocytes (%) (Auto) 7 % (0-9) Eosinophils (%) (Auto) 7 % (0-3) H Basophils (%) (Auto) 1 % (0-3) Neutrophils # (Auto) 4.6 x10^3/uL (1.8-7.7) Lymphocytes # (Auto) 2.3 x10^3/uL (1.0-4.8) Monocytes # (Auto) 0.5 x10^3/uL (0.0-1.1) Eosinophils # (Auto) 0.6 x10^3/uL (0.0-0.7) Basophils # (Auto) 0.1 x10^3/uL (0.0-0.2) Prothrombin Time 13.0 SEC (11.7-14.0) Prothrombin Time INR 1.0 (0.8-1.1) Activated Partial Thromboplast Time 31 SEC (24-38) Sodium Level 145 mmol/L (136-145) Potassium Level 2.8 mmol/L (3.5-5.1) *L Chloride Level 106 mmol/L (98-107) Carbon Dioxide Level 26 mmol/L (21-32) Anion Gap 13 (6-14) Blood Urea Nitrogen 4 mg/dL (8-26) L Creatinine 1.3 mg/dL (0.7-1.3) Estimated GFR (Cockcroft-Gault) 61.8 BUN/Creatinine Ratio 3 (6-20) L Glucose Level 115 mg/dL (70-99) H Lactic Acid Level 1.9 mmol/L (0.4-2.0) Calcium Level 8.6 mg/dL (8.5-10.1) Magnesium Level 1.5 mg/dL (1.8-2.4) L Total Bilirubin 0.3 mg/dL (0.2-1.0) Aspartate Amino Transferase (AST) 26 U/L (15-37) Alanine Aminotransferase (ALT) 44 U/L (16-63) Alkaline Phosphatase 69 U/L (46-116) Creatine Kinase 659 U/L (39-308) H Troponin I Quantitative < 0.017 ng/mL (0.000-0.055) Total Protein 7.4 g/dL (6.4-8.2) Albumin 4.2 g/dL (3.4-5.0) Albumin/Globulin Ratio 1.3 (1.0-1.7) Ethyl Alcohol Level < 10 mg/dL (0-10) Urine Opiates Screen Neg (NEG) Urine Methadone Screen Neg (NEG) Urine Barbiturates Neg (NEG) Urine Phencyclidine Screen Neg (NEG) Urine Amphetamine/Methamphetamine Neg (NEG) Urine Benzodiazepines Screen Pos (NEG) Urine Cocaine Screen Neg (NEG) Urine Cannabinoids Screen Neg (NEG) Urine Ethyl Alcohol Neg (NEG) Laboratory Tests 03/26/19 17:45 Laboratory Tests 03/26/19 17:45 (IAN SMYTH DO) Lab Values Laboratory Tests Test 03/26/19 17:45 03/26/19 18:30 White Blood Count 8.0 x10^3/uL (4.0-11.0) Red Blood Count 5.38 x10^6/uL (4.30-5.70) Hemoglobin 16.2 g/dL (13.0-17.5) Hematocrit 46.2 % (39.0-53.0) Mean Corpuscular Volume 86 fL (79-100) Mean Corpuscular Hemoglobin 30 pg (25-35) Mean Corpuscular Hemoglobin Concent 35 g/dL (31-37) Red Cell Distribution Width 13.8 % (11.5-14.5) Platelet Count 202 x10^3/uL (140-400) Neutrophils (%) (Auto) 57 % (31-73) Lymphocytes (%) (Auto) 28 % (24-48) Monocytes (%) (Auto) 7 % (0-9) Eosinophils (%) (Auto) 7 % (0-3) H Basophils (%) (Auto) 1 % (0-3) Neutrophils # (Auto) 4.6 x10^3/uL (1.8-7.7) Lymphocytes # (Auto) 2.3 x10^3/uL (1.0-4.8) Monocytes # (Auto) 0.5 x10^3/uL (0.0-1.1) Eosinophils # (Auto) 0.6 x10^3/uL (0.0-0.7) Basophils # (Auto) 0.1 x10^3/uL (0.0-0.2) Prothrombin Time 13.0 SEC (11.7-14.0) Prothrombin Time INR 1.0 (0.8-1.1) Activated Partial Thromboplast Time 31 SEC (24-38) Sodium Level 145 mmol/L (136-145) Potassium Level 2.8 mmol/L (3.5-5.1) *L Chloride Level 106 mmol/L (98-107) Carbon Dioxide Level 26 mmol/L (21-32) Anion Gap 13 (6-14) Blood Urea Nitrogen 4 mg/dL (8-26) L Creatinine 1.3 mg/dL (0.7-1.3) Estimated GFR (Cockcroft-Gault) 61.8 BUN/Creatinine Ratio 3 (6-20) L Glucose Level 115 mg/dL (70-99) H Lactic Acid Level 1.9 mmol/L (0.4-2.0) Calcium Level 8.6 mg/dL (8.5-10.1) Magnesium Level 1.5 mg/dL (1.8-2.4) L Total Bilirubin 0.3 mg/dL (0.2-1.0) Aspartate Amino Transferase (AST) 26 U/L (15-37) Alanine Aminotransferase (ALT) 44 U/L (16-63) Alkaline Phosphatase 69 U/L (46-116) Creatine Kinase 659 U/L (39-308) H Troponin I Quantitative < 0.017 ng/mL (0.000-0.055) Total Protein 7.4 g/dL (6.4-8.2) Albumin 4.2 g/dL (3.4-5.0) Albumin/Globulin Ratio 1.3 (1.0-1.7) Ethyl Alcohol Level < 10 mg/dL (0-10) Urine Opiates Screen Neg (NEG) Urine Methadone Screen Neg (NEG) Urine Barbiturates Neg (NEG) Urine Phencyclidine Screen Neg (NEG) Urine Amphetamine/Methamphetamine Neg (NEG) Urine Benzodiazepines Screen Pos (NEG) Urine Cocaine Screen Neg (NEG) Urine Cannabinoids Screen Neg (NEG) Urine Ethyl Alcohol Neg (NEG) Laboratory Tests 03/26/19 17:45 Laboratory Tests 03/26/19 17:45 (IAN NESBITT APRN) EKG EKG [] (IAN NESBITT APRN) Radiology/Procedures Radiology/Procedures [] (IAN NESBITT APRN) Course & Med Decision Making Course & Med Decision Making Pertinent Labs and Imaging studies reviewed. (See chart for details) Will get labs, ekg, and give fluids and norflex. Patient is tachycardic is room at 116. Labs show potassium of 2.8 and magnesium of 1.5. Will replace and give 2nd liter of fluids. Will d/c patient to follow up with primary care. (IAN NESBITT APRN) Dragon Disclaimer Dragon Disclaimer This electronic medical record was generated, in whole or in part, using a voice recognition dictation system. (IAN NESBITT APRN) Departure Departure Impression: Primary Impression: Hypokalemia Additional Impression: Hypomagnesemia Disposition: 01 HOME, SELF-CARE Condition: STABLE Referrals: NO PCP (PCP) Patient Instructions: Hypokalemia, Hypomagnesemia Additional Instructions: Thank you for visiting [facility]. We appreciate you trusting us with your care. If any additional problems come up don't hesitate to return to visit us. Please follow up with your primary care provider so they can plan additional care if needed and know about the problem that you had. If symptoms worsen come back to the Emergency Department. Any concerning symptoms that start such as chest pain, shortness of air, weakness or numbness on one side of the body, running high fevers or any other concerning symptoms return to the ER. Please follow up with primary care this week and have lab work rechecked and medications adjusted. Attending Signature Attending Signature I have reviewed the PA/FOREX TRADER's note and plan of care. I was available for cons ultation as needed during the patient's visit in the emergency department. I agree with the clinical impression, plan, and disposition. (IAN SMYTH DO) Problem Qualifiers IAN NESBITT APRN Mar 26, 2019 17:41 IAN SMYTH DO Mar 31, 2019 11:03
[2019-03-26] MEDS ORDERED: ORPHENADRINE CITRATE 60 MG/2 ML VIAL. IV ONE (18:00)
[2019-03-26] MEDS ORDERED: IV NORMAL SALINE 1000ML BAG 1,000 ML IV ONE ×2 (18:00→19:00)
[2019-03-26 18:01] LABS: BASO # 0.1 x10^3/uL (0.0-0.2); BASO % 1 % (0-3); EOS # 0.6 x10^3/uL (0.0-0.7); EOS % 7 % (0-3); HEMATOCRIT 46.2 % (39.0-53.0); HEMOGLOBIN 16.2 g/dL (13.0-17.5); LYMPH # 2.3 x10^3/uL (1.0-4.8); LYMPH % 28 % (24-48); MEAN CORPUSCULAR HEMOGLOBIN 30 pg (25-35); MEAN CORPUSCULAR HGB CONC 35 g/dL (31-37); MEAN CORPUSCULAR VOLUME 86 fL (79-100); MONO # 0.5 x10^3/uL (0.0-1.1); MONO % 7 % (0-9); NEUT # 4.6 x10^3/uL (1.8-7.7); NEUT % 57 % (31-73); PLATELET COUNT 202 x10^3/uL (140-400); RED BLOOD COUNT 5.38 x10^6/uL (4.30-5.70); RED CELL DISTRIBUTION WIDTH 13.8 % (11.5-14.5)
[2019-03-26 18:22] LABS: ALBUMIN 4.2 g/dL (3.4-5.0); ALBUMIN/GLOBULIN RATIO 1.3 (1.0-1.7); CALCIUM 8.6 mg/dL (8.5-10.1); CREATININE 1.3 mg/dL (0.7-1.3); GFR 61.8; MAGNESIUM 1.5 mg/dL (1.8-2.4); TOTAL BILIRUBIN 0.3 mg/dL (0.2-1.0); TOTAL PROTEIN 7.4 g/dL (6.4-8.2)
[2019-03-26 18:26] LABS: POTASSIUM 2.8 mmol/L (3.5-5.1)
[2019-03-26 18:49] LABS: BARBITURATES NEG (NEG); BENZODIAZEPINES POS (NEG); CANNABINOIDS NEG (NEG); COCAINE NEG (NEG); METHADONE NEG (NEG); OPIATES NEG (NEG); PHENCYCLIDINE NEG (NEG)
[2019-03-26 18:50] LABS: AMPHETAMINE/METHAMPHETAMINE NEG (NEG)
[2019-03-26] MEDS ORDERED: LEXAPRO20 MG PO (18:55)
[2019-03-26] MEDS ORDERED: DIAZEPAM10 MG PO (19:07)
[2019-03-26] MEDS ORDERED: HALO5TAB PO (19:07)
[2019-03-26] MEDS ORDERED: MAGNESIUM SULFATE 1GM 100 ML IV ONE (19:30)
[2019-03-26] MEDS ORDERED: POTASSIUM CHLORIDE 20 MEQ TABLET.ER. PO ONE (19:30)
[2019-03-26] MEDS ORDERED: KETOROLAC 30 MG/ML VIAL. ONE (20:51)
[2019-03-26] MEDS ORDERED: KETOROLAC 15 MG/ML VIAL. IV ONE (21:15)
--- NOTE | 2019-03-27 10:36 | EKG ---
[facility] [address] [place] [address] Test Date: 2019-03-26 Test Time: 17:35:41 Pat Name: HENRRY CHAPIN Department: Room: Gender: M Social Media Editor: : 1980 Requested By: IAN NESBITT Order Number: [id number] Reading MD: Measurements Intervals Alba Rate: 107 P: 45 VT: 170 QRS: 47 QRSD: 88 T: 3 QT: 332 QTc: 449 Interpretive Statements SINUS TACHYCARDIA OTHERWISE NORMAL ECG RI6.01 Unconfirmed report No previous ECG available for comparison
== END 2019-03-26 21:26 | disposition home or self-care (01) ==
LOC: ER 17:19
DX: E87.6 Hypokalemia (principal); E83.42 Hypomagnesemia; R25.2 Cramp and spasm; F41.9 Anxiety disorder, unspecified; I10 Essential (primary) hypertension
CPT/HCPCS: 36415; 80053; 80307; 82550; 83605; 83735; 84484; 85025; 85610; 85730; 93005; 96365; 96375; 99285; G0480; J1885; J2360; J3475; J7030